=== PATIENT | male | born 1990 | race African-American/Black ===

== ENCOUNTER 2016-08-18 21:06 | Emergency (ER) | payer MEDICAID ==
[~2016-08-18 21:06] MED LIST: IBUP800T23 PO; METH750T2 PO
[2016-08-18 21:15] VITALS: BP 132/86; PULSE 98; RESP 16; TEMP 98.6; O2SAT 99
--- NOTE | 2016-08-18 21:19 | PD ---
HPI Time Seen by Provider: 21:18 PFSH Social History Alcohol Use: Yes Tobacco Use: No Substance Use: No Allergies-Medications (Allergen,Severity, Reaction): Coded Allergies: No Known Allergies (Unverified , 08/26/14) Reported Meds & Prescriptions Reported Meds & Active Scripts Active Data Data Last Documented VS Vital Signs Date Time Temp Pulse Resp B/P Pulse Ox O2 Delivery O2 Flow Rate FiO2 08/18/16 21:47 98 16 08/18/16 21:15 98.6 132/86 99 Orders Cefazolin 2 Gm Premix (Ancef 2 Gm Premix (08/18/16 21:45) Lidocai-Epi 1%-1:100,000 Inj (Xylocaine- (08/18/16 21:40) Morphine Inj (Morphine Inj) (08/18/16 21:45) Georgina Soni Aug 18, 2016 21:18
[2016-08-18] MEDS ORDERED: LIDOCAINE 1%/EPINEPHrine 1:100,000 SOLN 20 ML VIAL ONE (21:40)
[2016-08-18] MEDS ORDERED: MORPHINE SULFATE 4 MG/ML INJ IV PUSH ONE (21:45)
[2016-08-18] MEDS ORDERED: ceFAZolin 2 GM PREMIX 50 ML IV ONE (21:45)
--- NOTE | 2016-08-18 22:37 | PD ---
Physical Exam Date Seen by Provider: Aug 18, 2016 Time Seen by Provider: 22:00 Narrative I was asked to repair a small laceration to the right index finger by Dr. Nguyen. Please refer to HPI for details of encounter. Data Data Last Documented VS Vital Signs Date Time Temp Pulse Resp B/P Pulse Ox O2 Delivery O2 Flow Rate FiO2 08/18/16 21:47 98 16 08/18/16 21:15 98.6 132/86 99 Orders Cefazolin 2 Gm Premix (Ancef 2 Gm Premix (08/18/16 21:45) Lidocai-Epi 1%-1:100,000 Inj (Xylocaine- (08/18/16 21:40) Morphine Inj (Morphine Inj) (08/18/16 21:45) MDM Medical Record Reviewed: Yes Supervised Visit with LC: No Differential Diagnosis finger laceration Narrative Course I was asked to repair a small 4 mm laceration to the proximal index finger dorsum of the hand. Patient gave verbal consent to repair. One suture was placed to the small laceration patient tolerated without incident. Procedures Procedure Narrative LACERATION LOCATION: proximal index finger right hand: dorsum LENGTH: 4 mm NUMBER OF STITCHES/MARIANN: 1 REPAIR: The area of the laceration was prepped with Betadine and sterilely draped. The laceration was infiltrated locally with 1% lidocaine. The wound was copiously irrigated and explored without evidence of foreign body, tendon injury or neurovascular injury. The wound was closed using 4-0 Ethilon. This was a single layer repair. A sterile dressing was applied. The patient was advised to keep the dressing clean and dry. Patient tolerated the procedure well. Condition: Stable Georgina Soni Aug 18, 2016 22:37
--- NOTE | 2016-08-18 23:03 | RADRPT ---
EXAM DATE/TIME: 08/18/2016 23:00 [facility] COMPARISON: No previous studies available for comparison. INDICATIONS : Pain from punching glass window. MEDICAL HISTORY : None. SURGICAL HISTORY : None. ENCOUNTER: Initial ACUITY: 1 day PAIN SCORE: 5/10 LOCATION: Right wrist. FINDINGS: Wrist is within a splint. Three view examination of the right wrist demonstrates no soft tissue swell ing, dislocation, or fracture. The carpal bones are in normal alignment. The joint spaces are maint ained. Bony mineralization is normal. CONCLUSION: Splinted view demonstrates no definite fracture. Dinesh Gallagher MD on August 18, 2016 at 23:00 Board Certified Radiologist. This report was verified electronically.
--- NOTE | 2016-08-18 23:04 | RADRPT ---
EXAM DATE/TIME: 08/18/2016 23:00 [facility] COMPARISON: No previous studies available for comparison. INDICATIONS : Pain from punching glass window. MEDICAL HISTORY : None. SURGICAL HISTORY : None. ENCOUNTER: Initial ACUITY: 1 day PAIN SCORE: 5/10 LOCATION: Right hand. FINDINGS: Wrist is within a splint. Three view examination of the right hand demonstrates no soft tissue swelli ng, dislocation, or fracture. The carpal bones appear intact. The interphalangeal and metacarpopha langeal joints are intact. Bony mineralization is normal. CONCLUSION: No fracture or foreign body seen. Dinesh Gallagher MD on August 18, 2016 at 23:02 Board Certified Radiologist. This report was verified electronically.
[2016-08-18] MEDS ORDERED: CEPH-459 PO (23:07)
--- NOTE | 2016-08-18 23:07 | PD ---
HPI Chief Complaint: Laceration/Skin Injury Time Seen by Provider: 21:18 Travel History International Travel<30 days: No Contact w/Intl Traveler<30days: No Traveled to known affect area: No History of Present Illness HPI 26-year-old male came to the emergency room today with history of right wrist laceration when he punched a glass door. He was bleeding profusely and a pressure dressing was applied at triage and was brought in emergently as a possible arterial bleed. Patient does have some alcohol on board but is able to answer questions appropriately. He says his last tetanus shot was within 5 years. He is right handed. He thinks there may be some glass pieces in the wound. This happened just before he came to the emergency room. [facility] Past Medical History Narrative Medical List of his past medical, surgical, social and family history was reviewed from the nursing note. Medical History: Denies Significant Hx Immunizations Current: No Tetanus Vaccination: > 5 Years Past Surgical History Surgical History: No Previous Surgery Social History Alcohol Use: Yes Tobacco Use: No Substance Use: Yes (MARIJUANA) Allergies-Medications (Allergen,Severity, Reaction): Coded Allergies: No Known Allergies (Unverified , 08/23/16) Comments No known drug allergies. Reported Meds & Prescriptions Reported Meds & Active Scripts Active Keflex (Cephalexin) 250 Mg Cap 250 Mg PO Q6H 10 Days Narrative Medication List of his home medications as reviewed from the nursing note. Review of Systems Except as stated in HPI: all other systems reviewed are Neg Physical Exam Narrative GENERAL: Awake, alert, mildly intoxicated, moderate distress SKIN: Focused skin assessment warm/dry. 5 cm jagged laceration that appears to be deep and pulsating blood. This is on the volar aspect of his right wrist on the distal radial prominence. There were 2 small superficial laceration on the dorsal aspect of the hand. They were not actively bleeding. HEAD: Atraumatic. Normocephalic. EYES: Pupils equal and round. No scleral icterus. No injection or drainage. ENT: No nasal bleeding or discharge. Mucous membranes pink and moist. NECK: Trachea midline. No JVD. CARDIOVASCULAR: Regular rate and rhythm. No murmur appreciated. RESPIRATORY: No accessory muscle use. Clear to auscultation. Breath sounds equal bilaterally. GASTROINTESTINAL: Abdomen soft, non-tender, nondistended. Hepatic and splenic margins not palpable. MUSCULOSKELETAL: No obvious deformities. No clubbing. No cyanosis. No edema. NEUROLOGICAL: Awake and alert. No obvious cranial nerve deficits. Motor grossly within normal limits. Normal speech. PSYCHIATRIC: Appropriate mood and affect; insight and judgment normal. Data Data Last Documented VS Orders Cefazolin 2 Gm Premix (Ancef 2 Gm Premix (08/18/16 21:45) Lidocai-Epi 1%-1:100,000 Inj (Xylocaine- (08/18/16 21:40) Morphine Inj (Morphine Inj) (08/18/16 21:45) Hand, Complete ([id number]) (08/18/16 ) Wrist, Complete ([id number]) (08/18/16 ) Fiberglass Splint Forearm Adul (08/18/16 ) Lidocai-Epi 1%-1:100,000 Inj (Xylocaine- (08/19/16 00:45) MDM Medical Decision Making Medical Screen Exam Complete: Yes Emergency Medical Condition: Yes Medical Record Reviewed: Yes Differential Diagnosis Arterial laceration, tendon laceration, wrist laceration Narrative Course 10:58 PM blood pressure cough was put on the right forearm and pressure was released up to 200 mmHg. The wound was explored at this point. There was some pulsating bright, red blood. I applied a total of 4 chromic gut sutures inside the wound SQ to control the bleeding. Please refer to my procedure note. Eventually after the closure of the wound pressure was held by me for 10 minutes manually. Slowly as the cuff was taken off the bleeding seemed to have stopped. Volar splint was applied. I discussed the case with the hand surgeon Dr. Rubio and as per him the management was sufficient for the time being. He did not recommend any CT angiogram since the ulnar artery is the major supplier to the hand and patient had good cap refills. I have ordered an x-ray of the wrist and the hand to rule out any foreign body even though during the laceration repair the wound was explored and no foreign body was seen or felt. The x-ray looks good patient will be discharged home. He was given 2 g of Ancef IV and a liter of IV fluid bolus. He will follow up with Dr. Rubio on Sunday in his office. He's been given careful meticulous instructions and his family member was standing next to him also listening to the instructions. Critical Care Narrative Aggregate critical care time was 45 minutes. Time to perform other separately billable procedures was not included in the critical care time. My time did not include minutes spent treating any other patients simultaneously or on activities that did not directly contribute to the patient's treatment. The services I provided to this patient were to treat and/or prevent clinically significant deterioration that could result in: Arterial bleed to the wrist I provided critical care services requiring my management, as noted below: Chart data review, documentation time, medication orders and management, vital sign assessments/reviewing monitor data, ordering and reviewing lab tests, ordering and interpreting/reviewing x-rays and diagnostic studies, care of the patient and discussion of the patient with the admitting physicians. Procedures Procedure Narrative LACERATION LOCATION: Right wrist volar aspect LENGTH: 5 cm NUMBER OF STITCHES/MARIANN: 7 stitches to the skin and 4 stitches subcutaneous REPAIR: The area of the laceration was prepped with Betadine and sterilely draped. The laceration was infiltrated with 1% lidocaine. The wound was copiously irrigated and explored without evidence of foreign body, tendon injury or neurovascular injury. The wound was closed using 3-0 chromic 4 for the subcutaneous layer and 4-0 Ethilon for the skin 7. This was a 2 layer repair. A sterile dressing was applied. The patient was advised to keep the dressing clean and dry. Patient tolerated the procedure well. EKG Prior to Arrival: No Physician Communication Physician Communication Dr. Pan Diagnosis Primary Impression: complex wrist laceration Additional Impressions: Arterial hemorrhage Alcohol abuse with intoxication delirium Outbursts of anger Referrals: Bala Pan III, MD 3 days Additional Instructions: Please follow-up with the hand surgeon whose name and number been given to you on Sunday. Call the office first thing in the morning to establish the time of appointment. The wound clean and dry. Return to the ER if the fingers are turning purple, throbbing pain or fever or any other concerns. The hand surgeon will manage the wound from here on. Take the medication as per the prescription direction. Med/Other Pt SpecificInfo: Prescription(s) given Scripts Cephalexin (Keflex)250 Mg [id number] Mg PO Q6H 10 Days Ref 0 Prov:Syd Otero MD 08/18/16 Disposition: 01 DISCHARGE HOME Condition: Stable Syd Otero MD Aug 18, 2016 23:07 Cephalexin (Keflex)250 Mg [id number] Mg PO Q6H 10 Days Ref 0 Prov:Syd Otero MD 08/18/16 Disposition: 01 DISCHARGE HOME Condition: Stable Syd Otero MD Aug 18, 2016 23:07
[2016-08-19] MEDS ORDERED: LIDOCAINE 1%/EPINEPHrine 1:100,000 SOLN 20 ML VIAL INFIL ONE (00:45)
[2016-08-19 00:48] VITALS: BP 129/72; PULSE 79; RESP 18; O2SAT 99
== END 2016-08-19 00:55 | disposition home or self-care (01) ==
LOC: NEPC 21:06
DX: S61.511A Laceration without foreign body of right wrist, initial encounter (principal); S61.210A Laceration without foreign body of right index finger without damage to nail, initial encounter; R58 Hemorrhage, not elsewhere classified; F10.121 Alcohol abuse with intoxication delirium; R45.4 Irritability and anger; W22.8XXA Striking against or struck by other objects, initial encounter; W25.XXXA Contact with sharp glass, initial encounter
CPT/HCPCS: 12001; 12032; 73110; 73130; 96374; 96375; 99291; J0690; J2270

== ENCOUNTER 2016-08-23 12:11 | Day surgery (SDC) | payer MEDICAID ==
[~2016-08-23] VITALS: Ht 175.3 cm; Wt 88.0 kg
[~2016-08-23 12:11] MED LIST changes: +CEPH-459 PO; -IBUP800T23 PO; +LACTATED RINGER'S 1000 ML INJ 1,000 ML IV ONE; -METH750T2 PO; +ONDANSETRON HCL 4 MG/2 ML VIAL IV PUSH ONE; +PROPOFOL 200 MG/20 ML AMP IV ONE
[2016-08-23 12:37] VITALS: BP 119/70; PULSE 81; RESP 16; TEMP 99.1; O2SAT 99
[2016-08-23] MEDS ORDERED: POVIDONE IODINE 5% (ANTISEPSIS KIT) 4 APPLICATIONS EACH NARE PRN (12:45)
[2016-08-23] MEDS ORDERED: LACTATED RINGER'S 1000 ML IV PRN (12:45)
[2016-08-23] MEDS ORDERED: CHLORHEXIDINE GLUCONATE 2 % 1 PACK (2 CLOTHS) TOPICAL PRN (12:45)
[2016-08-23] MEDS ORDERED: METOPROLOL TARTRATE 25 MG TAB PO PRN (12:45)
[2016-08-23] MEDS ORDERED: SODIUM CHLORID 0.9% 500 ML IV PRN (12:45)
[2016-08-23] MEDS ORDERED: INSULIN HUMAN REGULAR 1,000 UNITS/10 ML VIAL SQ PRN (12:45)
[2016-08-23 12:58] LABS: AUTOMATED NEUTROPHIL # 2.5 TH/MM3 (1.8-7.7); BASOPHIL % 0.7 % (0.0-2.0); EOSINOPHIL % 0.7 % (0.0-4.0); HEMATOCRIT 41.9 % (39.0-51.0); HEMO FLAGS DIFF FINAL; LYMPH % 37.3 % (9.0-44.0); LYMPHOCYTE # 1.8 TH/MM3 (1.0-4.8); MEAN CELL VOLUME 91.5 FL (80.0-100.0); MEAN CORPUSCULAR HEMOGLOBIN 30.5 PG (27.0-34.0); MEAN CORPUSCULAR HGB CONC 33.3 % (32.0-36.0); MONO % 9.9 % (0.0-8.0); NEUT % 51.4 % (16.0-70.0); PLATELET COUNT 375 TH/MM3 (150-450); RED BLOOD COUNT 4.58 MIL/MM3 (4.50-5.90); RED CELL DISTRIBUTION WIDTH 12.7 % (11.6-17.2); WHITE BLOOD COUNT 4.8 TH/MM3 (4.0-11.0)
[2016-08-23] MEDS ORDERED: ceFAZolin 1,000 MG/NS 100 ML IV ONE ×2 (13:00)
[2016-08-23] MEDS ORDERED: MIDAZOLAM HCL 2 MG/2 ML VIAL ONE (14:51)
[2016-08-23] MEDS ORDERED: FAMOTIDINE 20 MG/2 ML VIAL ONE (14:51)
[2016-08-23] MEDS ORDERED: fentaNYL CITRATE 250 MCG/5 ML AMP ONE (15:08)
[2016-08-23] MEDS ORDERED: HEPARIN SODIUM - SQ 10,000 UNITS/ML VIAL ONE (15:16)
[2016-08-23] MEDS ORDERED: LIDOCAINE HCL 2% 50 ML VIAL INFIL ONE (15:33)
[2016-08-23] MEDS ORDERED: BUPIVACAINE HCL PF 0.5% 30 ML VIAL INFIL ONE (15:33)
[2016-08-23] MEDS ORDERED: ASPIRIN 300 MG SUPP RECTAL ONE (17:15)
[2016-08-23] MEDS ORDERED: ASPI-200 PO (18:04)
[2016-08-23] MEDS ORDERED: ASPI325T33 PO (18:06)
[2016-08-23] MEDS ORDERED: HYDR-3288 PO (18:06)
[2016-08-23] MEDS ORDERED: *morphine SULFATE 8 MG/ML PERIprocedure ONLY ONE ×2 (18:42→19:29)
[2016-08-23] MEDS ORDERED: ACETAMINOPHEN/HYDROcodone 325 MG/5 MG TAB PO PRN (19:15)
[2016-08-23] MEDS ORDERED: DO NOT ADM ANY ANTICOAGULANT DRUGS PRN (19:15)
[2016-08-23] MEDS ORDERED: MEPERIDINE HCL 25 MG/ML VIAL IM PRN (19:15)
[2016-08-23 20:15] VITALS: BP 130/89; PULSE 71; TEMP 97.5; O2SAT 100
[2016-08-23 20:20] VITALS: RESP 16
[2016-08-24] MEDS ORDERED: ASPIRIN 325 MG TAB PO SCH (09:00)
--- NOTE | 2016-08-25 15:46 | MP ---
cc: [facility]List DATE OF SURGERY: 08/23/2016 PREOPERATIVE DIAGNOSIS: Right wrist laceration. POSTOPERATIVE DIAGNOSIS: Right wrist laceration. OPERATION: 1. Exploration right wrist. 2. Right radial artery repair. 3. Right flexor carpi radialis repair. 4. Right EPB tendon repair. 5. Right APL tendon repair. SURGEON: Bala Pan III, MD. PROCEDURE The patient was brought to the operating room and placed supine on the operating room table. After the correct site of surgery were verified members of each team room multiple times including the patient myself and after adequate general anesthesia was achieved, the right upper extremity prepped and draped in traditional sterile surgical fashion. Existing sutures were removed. A large clot was then extracted. It did appear that the ends of the radial artery were cut and clotted off. Thorough irrigation was performed with saline. Further exploration required extension and the wounds from both directions. Once this was done it was identified at the flexor carpi radialis tendon was transected as was the radial artery at the wrist flexion crease and then all the tendons of the first dorsal compartment were also transected. Thorough irrigation was performed. The flexor carpi radialis was repaired with a six core strand suture repair using 2-0 Prolene in a modified locking and unlocking [place] fashion with 4-0 Mersilene far and wide to re-enforce the repair. The radial artery was then addressed. The axillary tourniquet was released. Pulsatile flow from the distal stump was achieved easily when the small clot was removed. Thrombectomy with a 2-Wolof Felix catheter was done proximally and this restored powerful pulsatile forward flow. Therefore the ends were spatulated cleared of adventitia. Using interrupted and running 8-0 nylon sutures the ends were repaired in an end-to-end fashion after the ends were spatulated. Proximally and distally flushed with heparin saline 5000 units, 250 cc prior to the repair. Once the repair was done, hemostasis was present. The fingers stayed soft, pink and warm, and had brisk capillary refill of less than two seconds. Doppler examination revealed triphasic to better than triphasic signal across the repair when the ulnar artery was occluded and then a biphasic signal when the ulnar artery was released. The first dorsal compartment was then released. With the incision dorsally, the extensor pollicis brevis and the abductor pollicis longus tendons were then retracted into the wound and repaired using four core strand repair with 3-0 Prolene sutures was done easily. The extensor pollicis longus tendon was identified and examined. It was in continuity and was outside of the field of injury. Thorough irrigation was performed. There was no other anatomic abnormalities. Doppler examination was performed again right before closure. The skin edges were then reapproximated using running and interrupted 4-0 chromic sutures. The hand and arm were thoroughly cleansed and dried. Betadine Adaptic dressings applied atop the wound, followed by a bulky short-arm thumb spica splint. The patient was awakened from anesthesia and transported to Post Anesthesia Care Unit awake and in stable condition at the end of the case. The sponge, needle and instrument counts were correct at the end of the case as reported by the nurses in the room. MD ANA Jesus III/FORTUNATO /6:23 PM /3:16 PM
== END 2016-08-23 20:23 | disposition home or self-care (01) ==
LOC: HSDC 12:11
PROVIDERS: ATTEND Orthopaedic Surgery Hand Surgery
DX: S61.511A Laceration without foreign body of right wrist, initial encounter (principal); S66.221A Laceration of extensor muscle, fascia and tendon of right thumb at wrist and hand level, initial encounter; S66.021A Laceration of long flexor muscle, fascia and tendon of right thumb at wrist and hand level, initial encounter; W22.09XA Striking against other stationary object, initial encounter
CPT/HCPCS: 01842; 20103; 25260; 25270; 34111; 85025; J0690; J1644; J2250; J2270; J2405; J3010; J7120